=== PATIENT | female | born 1995 | race Caucasian/White ===

== ENCOUNTER 2024-10-04 07:02 | Emergency (ER) | payer OTHER, SELFPAY ==
[2024-10-04 07:18] VITALS: BP 156/93; PULSE 58; RESP 18; TEMP 36.6; O2SAT 98
[2024-10-04] MEDS: FAMOTIDINE 20 MG/2 ML VIAL IV PUSH (07:33)
[2024-10-04] MEDS: ONDANSETRON INJ 4 MG/2 ML VIAL IV PUSH (07:34)
[2024-10-04] MEDS: HALOPERIDOL LACTATE 5 MG/ML VIAL IM (07:36)
[2024-10-04] MEDS: SODIUM CHLORIDE 0.9% IV 2,000 ML 999 ML IV CONT (07:37)
[2024-10-04 08:00] VITALS: BP 118/76; PULSE 62; RESP 16; TEMP 36.6; O2SAT 100
[2024-10-04] MEDS: diphenhydrAMINE HCl INJ 50 MG/ML VIAL 25 MG IV PUSH ×2 (08:09→09:13)
[2024-10-04 09:00] VITALS: BP 112/70; PULSE 58; RESP 16; TEMP 36.6; O2SAT 100
[2024-10-04] MEDS: PROCHLORPERAZINE EDISYLATE 10 MG/2 ML VIAL IM (09:13)
[2024-10-04] MEDS: METOCLOPRAMIDE HCL INJ 10 MG/2 ML VIAL IV PUSH (09:13)
[2024-10-04 09:24] LABS: Basophils Percent Auto 0.3 % (0.2-1.2); Eosinophils Percent Auto 0.1 % (0-4.4); Hematocrit 38.6 % (37.0-47.0); Hemoglobin 12.8 g/dL (12.0-15.0); Immature Granulocyte Absolute 0.05 K/mm3 (0.00-0.031); Immature Granulocyte Percent A 0.4 % (0-0.5); Immature Platelet Fraction Pct 10.6 % (0.9-11.2); Lymphocytes Absolute Auto 1.98 K/mm3 (0.9-3.2); Lymphocytes Percent Auto 15.1 % (18.3-44.2); Mean Corpuscular HGB Conc 33.2 g/dl (32-36); Mean Corpuscular Hemoglobin 30.6 pg (26-34); Mean Corpuscular Volume 92.3 fl (80-100); Mean Platelet Volume 12.5 fl (7.4-10.4); Monocytes Absolute Auto 0.6 K/mm3 (0.1-0.6); Monocytes Percent Auto 4.8 % (2.6-8.5); Neutrophils Absolute Auto 10.4 K/mm3 (1.3-6.7); Neutrophils Percent Auto 79.3 % (45.5-73.1); Platelet Count Result 177 k/mm3 (150-375); Red Blood Count 4.18 M/mm3 (4.2-5.4); Red Cell Distribution Width 13.3 % (11.5-14.5); White Blood Count 13.1 K/mm3 (4.5-10.0)
[2024-10-04 09:46] LABS: Amphetamine Screen Urine Negative (Negative); Barbiturate Screen Urine Negative (Negative); Benzodiazepines Screen Urine Negative (Negative); Cannabinoid Screen Urine Positive (Negative); Cocaine Screen Urine Negative (Negative); Methadone Screen Urine Negative (Negative); Opiate Screen Urine Negative (Negative); Phencyclidine Screen Urine Negative (Negative)
[2024-10-04 10:00] VITALS: BP 118/70; PULSE 62; RESP 18; TEMP 36.6; O2SAT 100
--- NOTE | 2024-10-04 10:14 | ED.GENADULT ---
HPI - General Adult General Chief complaint: Nausea/Vomiting/Diarrhea Stated complaint: N/V for 3 days Time Seen by Provider: 10/04/24 07:16 History of Present Illness HPI narrative: this is a 20-year-old female with daily marijuana use presenting with nausea and vomiting. Symptoms have been ongoing for 3 days. She was seen in outside facility and was told this was due to her marijuana. She is skeptical. Patient is having diffuse abdominal pain. She is denying fevers chills chest pain difficulty breathing or urinary symptoms. Related Data Allergies Allergy/AdvReac Type Severity Reaction Status Date / Time No Known Allergies Allergy Verified 10/04/24 07:03 Exam Narrative: APPEARANCE: patient is retching loudly Head: atraumatic. EYES: EOMI, NOSE: Atraumatic NECK: Trachea midline RESPIRATORY: No increased rate of breathing, CTAB CARDIOVASCULAR: RRR, ABDOMINAL: Non-distended, soft nontender no CVA tenderness MUSCULOSKELETAl: No obvious deformities NEURO: Alert. Moving 4/4 extremities SKIN:: Warm, dry. Normal color PSYCHIATRIC: Normal affect Course Vital Signs Vital signs: Vital Signs Temperature 97.8 F 10/04/24 07:18 Pulse Rate 58 L 10/04/24 07:18 Respiratory Rate 18 10/04/24 07:18 Blood Pressure 156/93 H 10/04/24 07:18 Pulse Oximetry 98 10/04/24 07:18 Oxygen Delivery Room Air 10/04/24 07:18 Temperature 97.8 F 10/04/24 10:00 Pulse Rate 62 10/04/24 10:00 Respiratory Rate 18 10/04/24 10:00 Blood Pressure 118/70 10/04/24 10:00 Pulse Oximetry 100 10/04/24 10:00 Oxygen Delivery Room Air 10/04/24 07:18 Medical Decision Making [facility] Narrative Medical decision making narrative: -Course: 28-year-old female presenting with nausea and vomiting in the setting of daily marijuana use. Patient given multiple rounds of antiemetics with some improvement. Patient still having some nausea. patient not want be admitted to the hospital. She then left before getting her discharge paperwork. -DDX includes but is not limited to: Cannabinoid hyperemesis, gastroenteritis, dehydration -Co-morbidities complicating care: daily marijuana use -Social determinants of health: daily marijuana use -Independent interpretation of studies: labs and imaging reviewed -Interventions: 2 L normal saline, Haldol, Zofran, Pepcid, -> Benadryl, Compazine, -> Reglan Benadryl -Shared decision making / Disposition:discharged. Vital Signs Vital Signs: Vital Signs Temperature 97.8 F 10/04/24 07:18 Pulse Rate 58 L 10/04/24 07:18 Respiratory Rate 18 10/04/24 07:18 Blood Pressure 156/93 H 10/04/24 07:18 Pulse Oximetry 98 10/04/24 07:18 Oxygen Delivery Room Air 10/04/24 07:18 Temperature 97.8 F 10/04/24 10:00 Pulse Rate 62 10/04/24 10:00 Respiratory Rate 18 10/04/24 10:00 Blood Pressure 118/70 10/04/24 10:00 Pulse Oximetry 100 10/04/24 10:00 Oxygen Delivery Room Air 10/04/24 07:18 Lab Data 10/04/24 09:16 10/04/24 09:16 Labs: Lab Results 10/04/24 Range/Units 09:16 WBC 13.1 H (4.5-10.0) K/mm3 RBC 4.18 L (4.2-5.4) M/mm3 Hgb 12.8 (12.0-15.0) g/dL Hct 38.6 (37.0-47.0) % MCV 92.3 (80-100) fl MCH 30.6 (26-34) pg MCHC 33.2 (32-36) g/dl RDW 13.3 (11.5-14.5) % Plt Count 177 (150-375) k/mm3 MPV 12.5 H (7.4-10.4) fl Immature Gran % (Auto) 0.4 (0-0.5) % Neut % (Auto) 79.3 H (45.5-73.1) % Lymph % (Auto) 15.1 L (18.3-44.2) % [place] % (Auto) 4.8 (2.6-8.5) % Eos % (Auto) 0.1 (0-4.4) % Baso % (Auto) 0.3 (0.2-1.2) % Lymph # (Auto) 1.98 (0.9-3.2) K/mm3 [place] # (Auto) 0.6 (0.1-0.6) K/mm3 Eos # (Auto) 0.0 (0-0.3) K/mm3 Baso # (Auto) 0.0 (0.0-0.1) K/mm3 Abs Immat Gran (auto) 0.05 H (0.00-0.031) K/mm3 Absolute Neuts (auto) 10.4 H (1.3-6.7) K/mm3 Absolute Nucleated RBC 0.000 (0.0-0.012) K/mm3 Nucleated RBC % 0.0 (0.0-0.2) % % Immature Plt Fraction 10.6 (0.9-11.2) % Sodium 136 L (137-145) mmol/L Potassium 3.9 (3.4-5.0) mmol/L Chloride 107 (98-107) mmol/L Carbon Dioxide 21 L (22-30) mmol/L Anion Gap 8 (4-12) mmol/L BUN 13 (7-17) mg/dL Creatinine 0.70 (0.7-1.0) mg/dL Estim Creat Clear Calc Not Reportable Estimated GFR > 60 (59 - ) Glucose 123 H (65-110) mg/dL Calcium 8.7 (8.4-10.2) mg/dL Total Bilirubin 1.1 (0.2-1.3) mg/dL AST 38 H (14-36) U/L ALT 39 H (6-35) U/L Alkaline Phosphatase 99 (38-126) U/L Total Protein 7.0 (6.3-8.2) g/dL Albumin 4.2 (3.5-5.1) g/dL Urine Color Pending Urine Appearance Pending Urine pH Pending Ur Specific Drew Pending Urine Protein Pending Urine Glucose (UA) Pending Urine Ketones Pending Ur Blood (Man) Pending Urine Nitrate Pending Urine Bilirubin Pending Urine Urobilinogen Pending Leukocyte Esterase Rfl Pending Urine Opiates Screen Negative (Negative) Urine Methadone Screen Negative (Negative) Ur Barbiturates Screen Negative (Negative) Ur Phencyclidine Scrn Negative (Negative) Ur Amphetamine Screen Negative (Negative) U Benzodiazepines Scrn Negative (Negative) Urine Cocaine Screen Negative (Negative) U Cannabinoids Screen Positive A (Negative) Discharge Plan Discharge Clinical Impression: Cannabinoid hyperemesis syndrome Patient Disposition: Home, Self-Care Condition: Stable Instructions: Antibiotic Form, Acute Nausea and Vomiting (ED) Additional Instructions: please take the Zofran as prescribed. Please stop using marijuana can worsen her symptoms. Please follow-up your primary care physician further management. Return if you develop severe abdominal pain fevers or intractable nausea and vomiting. Prescriptions: New ondansetron 4 mg tablet,disintegrating 4 mg PO Q8H PRN (Reason: nausea and vomiting) Qty: 30 0RF Follow-up/Referrals: UNKNOWN,DOCTOR [Primary Care Provider] -
[2024-10-04 10:33] LABS: Alanine Aminotransferase 39 U/L (6-35); Albumin Level 4.2 g/dL (3.5-5.1); Alkaline Phosphatase 99 U/L (38-126); Anion Gap 8 mmol/L (4-12); Aspartate Amino Transferase 38 U/L (14-36); Bilirubin,Total 1.1 mg/dL (0.2-1.3); Blood Urea Nitrogen 13 mg/dL (7-17); Calcium 8.7 mg/dL (8.4-10.2); Carbon Dioxide 21 mmol/L (22-30); Chloride 107 mmol/L (98-107); Estimated Glomerular Filt Rate > 60; Glucose 123 mg/dL (65-110); Potassium 3.9 mmol/L (3.4-5.0); Sodium 136 mmol/L (137-145)
== END 2024-10-04 10:40 | disposition home or self-care (01) ==
PROVIDERS: Emergency Provider Emergency Medicine
DX: R11.2 Nausea with vomiting, unspecified (principal); F12.90 Cannabis use, unspecified, uncomplicated
CPT/HCPCS: 36415; 80053; 80307; 85025; 85055; 96361; 96372; 96374; 96375; 96376; 99284; J0780; J1200; J1630; J2405; J2765; J7030